=== PATIENT | female | born 1995 | race Caucasian/White ===

== ENCOUNTER 2017-10-04 20:24 | Emergency (ER) | payer BC ==
[~2017-10-04] VITALS: Ht 162.6 cm; Wt 52.2 kg
[2017-10-04 20:28] VITALS: BP_SYST 128
[2017-10-04] MEDS ORDERED: DIPH-TET-PERTUS Vaccine 0.5 ML VIAL (ADACEL) I.M. ONE (21:15)
[2017-10-04 21:25] VITALS: BP_SYST 125
== END 2017-10-04 21:25 | disposition home or self-care (01) ==
LOC: SED 20:24
DX: S61.210A Laceration without foreign body of right index finger without damage to nail, initial encounter (principal); R03.0 Elevated blood-pressure reading, without diagnosis of hypertension; W26.0XXA Contact with knife, initial encounter; Y93.89 Activity, other specified; Y92.89 Other specified places as the place of occurrence of the external cause; Y99.8 Other external cause status
CPT/HCPCS: 90715; 99283